=== PATIENT | female | born 1960 | race Asian ===

== ENCOUNTER 2021-01-11 14:30 | Emergency (ER) | payer BC ==
[2021-01-11 14:39] VITALS: TEMP 98; BMI 22.6
[2021-01-11] MEDS ORDERED: SODIUM CHLORIDE 0.9% 500 ML INFUS.BAG IV ONE (16:43)
[2021-01-11] MEDS ORDERED: KETOROLAC TROMETHAMINE 15 MG/ML VIAL IVPUSH ONE (16:43)
[2021-01-11] MEDS ORDERED: ONDANSETRON 4 MG/2 ML VIAL IVPUSH ONE (16:43)
[2021-01-11] MEDS ORDERED: ONDANSETRON 4 MG/2 ML VIAL ONE (16:50)
[2021-01-11] MEDS ORDERED: KETOROLAC TROMETHAMINE 15 MG/ML VIAL ONE (16:50)
[2021-01-11 17:19] LABS: BASO % 1.2 % (0-2.0); HEMATOCRIT 42.5 % (32.4-45.2); HEMOGLOBIN 14.1 GM/dl (10.7-15.3); LYMPH % 6.4 % (8-40); MCHC 33.2 g/dl (32.0-36.0); MEAN CELL VOLUME 87.2 fl (80-96); MEAN PLT VOLUME 8.2 fl (7.5-11.1); MONO % 3.3 % (3.8-10.2); NEUT % 89.1 % (42.8-82.8); PLATELET COUNT 306 10^3/uL (134-434); RBC 4.87 M/mm3 (3.60-5.2); RDW 11.8 % (11.6-15.6); WHITE BLOOD COUNT 12.8 K/mm3 (4.0-10.8)
[2021-01-11 17:35] LABS: ALBUMIN 4.4 g/dl (3.4-5.0); BILIRUBIN,TOTAL 1.4 mg/dl (0.2-1); CALCIUM 8.7 mg/dl (8.5-10); CREATININE 0.6 mg/dl (0.55-1.3)
[2021-01-11 19:13] VITALS: BP 132/74; PULSE 76
== END 2021-01-11 19:20 | disposition home or self-care (01) ==
LOC: FER 14:30
PROC: 3E0333Z Introduction of Anti-inflammatory into Peripheral Vein, Percutaneous Approach (ICD-10-PCS; principal; 2021-01-11)
PROC: 3E033GC Introduction of Other Therapeutic Substance into Peripheral Vein, Percutaneous Approach (ICD-10-PCS; 2021-01-11)
DX: R42 Dizziness and giddiness (principal); R11.10 Vomiting, unspecified; M25.511 Pain in right shoulder; T88.7XXA Unspecified adverse effect of drug or medicament, initial encounter
CPT/HCPCS: 36415; 73030-TC-RT-FY; 80053; 85025; 93005; 99284-25